=== PATIENT | male | born 1940 | race Caucasian/White ===

== ENCOUNTER 2022-12-07 18:10 | Inpatient (IN) | payer OTHER ==
[~2022-12-07] VITALS: Ht 170.2 cm; Wt 68.0 kg
[2022-12-07 18:20] VITALS: BP 140/51
--- NOTE | 2022-12-07 18:44 | NUR ---
82/M WALKED IN D/T LOW HGB OF 7.5 FROM PCP ROUTINE BLOOD DRAW. DENIES ANY COMPLAINTS AT THIS TIME. DENIES BLOOD IN STOOL. AAO4, AMBULATORY, VITALS STABLE. ON ROOM AIR, NO ACUTE DISTRESS NOTED. ALLERGY: PCN, KEFLEX PMH: CVA, HEART VALVE REPAIR, HTN, HDL
--- NOTE | 2022-12-07 18:45 | NUR ---
BLOOD DRAWN. IV ESTABLISHED TO RIGHT AC WITH 20G.
[2022-12-07 19:04] LABS: BASOPHILS # (AUTO) 0.1 K/uL (0.00-0.22); BASOPHILS % (AUTO) 0.9 % (0.0-2.0); EOSINOPHILS # (AUTO) 0.5 K/uL (0-0.4); EOSINOPHILS % (AUTO) 6.6 % (0.0-4.0); HEMATOCRIT 21.6 % (36-52); HEMOGLOBIN 7.1 g/dL (12.0-18.0); LYMPHOCYTES # (AUTO) 1.8 K/uL (2.0-11.5); LYMPHOCYTES % (AUTO) 22.4 % (20.5-51.1); MEAN CORPUSCULAR HEMOGLOBIN 31 pg (27-31); MEAN CORPUSCULAR HGB CONC 33 g/dL (33-37); MEAN CORPUSCULAR VOLUME 92.3 fL (80-94); MONOCYTES # (AUTO) 0.7 K/uL (0.8-1.0); MONOCYTES % (AUTO) 8.9 % (1.7-9.3); NEUTROPHILS % (AUTO) 61.2 % (42.2-75.2); PLATELET COUNT (AUTO) 249 K/uL (140-450); RED BLOOD CELL COUNT(AUTO) 2.34 MIL/uL (4.20-6.10); RED CELL DISTRIBUTION WIDTH 15.1 % (11.6-13.7); WHITE BLOOD COUNT (AUTO) 8.2 K/uL (4.8-10.8)
[2022-12-07 19:19] LABS: PROTHROMBIN TIME 10.5 secs (10.8-13.4)
[2022-12-07 19:25] LABS: ALBUMIN 3.1 g/dL (3.4-5.0); ANION GAP 10.4 (8-16); ASPARTATE AMINOTRANSFERASE 50 U/L (15-37); CARBON DIOXIDE 27.5 mmol/L (21-32); CHLORIDE 106 mmol/L (98-107); GLUCOSE 115 mg/dL (74-106); POTASSIUM 4.9 mmol/L (3.5-5.1); SODIUM SERUM 139 mmol/L (136-145); TOTAL BILIRUBIN 1.2 mg/dL (0.0-1.0); UREA NITROGEN, BLOOD 43 mg/dL (7-18)
--- NOTE | 2022-12-07 19:33 | NUR ---
PT IS ALERT AND ORIENTED X4. PT IS TALKAATIVE. HE IS ON ROOM AIR, DENIES PAIN. SON AT THE BEDIDE.
[2022-12-07] MEDS ORDERED: VITA1TAB44 PO (20:06)
[2022-12-07] MEDS ORDERED: PANT40EC PO (20:06)
[2022-12-07] MEDS ORDERED: ISOS30TE68 PO (20:06)
[2022-12-07] MEDS ORDERED: FERR325E14 PO (20:06)
[2022-12-07] MEDS ORDERED: METO25TE2 PO (20:06)
[2022-12-07] MEDS ORDERED: ASPI-1822 PO (20:06)
[2022-12-07] MEDS ORDERED: ALPR0.252 PO (20:06)
--- NOTE | 2022-12-07 21:00 | NUR ---
went to get blood from the lab. 1 unit was ordered.
--- NOTE | 2022-12-07 21:33 | NUR ---
blood transfution is initiated. Vital normal is normal limmits. Son at the bedside.
--- NOTE | 2022-12-07 21:40 | NUR ---
BELONGINGS LIST DONE.
[2022-12-07] MEDS ORDERED: LISI30TA6 PO (23:05)
[2022-12-07] MEDS ORDERED: MIRA25TE PO (23:30)
[2022-12-07] MEDS ORDERED: MECO10005 PO (23:30)
[2022-12-07] MEDS ORDERED: POTA10TA70 PO (23:30)
[2022-12-07] MEDS ORDERED: LIP80 PO (23:30)
[2022-12-07] MEDS ORDERED: EZET10TA14 PO (23:30)
[2022-12-07] MEDS ORDERED: OXYC5TAB4 PO (23:30)
[2022-12-07] MEDS ORDERED: ALLO300T28 PO (23:30)
[2022-12-07] MEDS ORDERED: TAMS0.4C96 PO (23:30)
[2022-12-07] MEDS ORDERED: FURO-570 PO (23:30)
[2022-12-07] MEDS ORDERED: FINA5TAB1 PO (23:30)
[2022-12-07] MEDS ORDERED: TRAM50TA3 PO (23:30)
--- NOTE | 2022-12-08 00:50 | NUR ---
Blood transfusion is done. No adverse reaction is noted. pt tolerated well.
[2022-12-08] MEDS: NACL 0.9% 1,000 ML IV SCH ×3 (01:22→09:02)
--- NOTE | 2022-12-08 03:45 | NUR ---
pt called the nurse since he voided and wanted to be changed. crae was provided.
[2022-12-08 07:13] LABS: BASOPHILS # (AUTO) 0.1 K/uL (0.00-0.22); BASOPHILS % (AUTO) 0.9 % (0.0-2.0); EOSINOPHILS # (AUTO) 0.5 K/uL (0-0.4); EOSINOPHILS % (AUTO) 6.5 % (0.0-4.0); HEMATOCRIT 24.5 % (36-52); HEMOGLOBIN 8.2 g/dL (12.0-18.0); LYMPHOCYTES # (AUTO) 1.8 K/uL (2.0-11.5); LYMPHOCYTES % (AUTO) 23.9 % (20.5-51.1); MEAN CORPUSCULAR HEMOGLOBIN 30 pg (27-31); MEAN CORPUSCULAR HGB CONC 33 g/dL (33-37); MONOCYTES # (AUTO) 0.6 K/uL (0.8-1.0); MONOCYTES % (AUTO) 8.1 % (1.7-9.3); NEUTROPHILS # (AUTO) 4.6 K/uL (1.8-7.7); NEUTROPHILS % (AUTO) 60.6 % (42.2-75.2); PLATELET COUNT (AUTO) 210 K/uL (140-450); RED BLOOD CELL COUNT(AUTO) 2.75 MIL/uL (4.20-6.10); RED CELL DISTRIBUTION WIDTH 15.1 % (11.6-13.7); WHITE BLOOD COUNT (AUTO) 7.5 K/uL (4.8-10.8)
[2022-12-08 07:17] LABS: ANION GAP 13.6 (8-16); CARBON DIOXIDE 24.4 mmol/L (21-32); CHLORIDE 109 mmol/L (98-107); CREATININE 1.3 mg/dL (0.6-1.3); GLUCOSE 95 mg/dL (74-106); SODIUM SERUM 142 mmol/L (136-145); UREA NITROGEN, BLOOD 32 mg/dL (7-18)
--- NOTE | 2022-12-08 08:02 | NUR ---
Patient will be admitted to care of KAYE. Admited to TELE. Will go to room 126A. Belongings list completed. Report to ZINA JARAMILLO.
[2022-12-08 08:13] VITALS: BP 159/59
--- NOTE | 2022-12-08 08:13 | NUR ---
RECEIVED PT FROM [employer] SUPERVISOR, BUCK, VIA ISRA, PT IS AWAKE, ALERT AND ORIENTED, ON ROOM AIR, IV LINE NOTED ON THE RIGHT AC G. 20 ON SALINE LOCK, PT HAS HIS OWN WALKER ON BEDSIDE, SKIN IS INTACT, NO OPEN WOUND NOTED, NO SIGN OF DISTRESS NOTED AND WILL CONTINUE TO MONITOR PT.
--- NOTE | 2022-12-08 08:30 | NUR ---
PT'S GOWN AND BEDDINGS WERE CHANGED NOW AND PT WAS MADE COMFORTABLE ON THE BED WITH SON ON THE BEDSIDE.
[2022-12-08] MEDS ORDERED: MAG SULF 2000 MG/WATER PREMIX 50 ML IV PRN (08:55)
[2022-12-08] MEDS ORDERED: POTASSIUM CHLORIDE 10 MEQ TABER PO PRN (08:55)
[2022-12-08] MEDS ORDERED: traMADol 50 MG TAB PO SCH (08:55)
[2022-12-08] MEDS ORDERED: ONDANSETRON 4 MG/2 ML VIAL IVP PRN (09:05)
[2022-12-08] MEDS ORDERED: ACETAMINOPHEN 325 MG TAB PO PRN (09:05)
--- NOTE | 2022-12-08 09:26 | NUR ---
PATIENT HAS BEEN SCREENED AND CATEGORIZED MODERATE NUTRITION RISK. PATIENT WILL BE SEEN WITHIN 3-5 DAYS OF ADMISSION. REVIEWED BY KOLBY GASTON RD
[2022-12-08] MEDS: ASPIRIN 81 MG TAB.CHEW PO SCH (09:28)
[2022-12-08] MEDS: lisinopriL 10 MG TAB PO SCH (09:29)
[2022-12-08] MEDS: allopurinoL 300 MG TAB PO SCH (09:30)
[2022-12-08] MEDS: FERROUS SULFATE 325 MG TABEC PO SCH (09:30)
--- NOTE | 2022-12-08 09:30 | NUR ---
CHEST XR IS BEING DONE TO PT NOW.
[2022-12-08] MEDS: ISOSORBIDE MONONITRATE 30 MG TABER PO SCH (09:31)
[2022-12-08] MEDS: VIT-B COMP/VIT-C/FOLIC ACID 1 TAB PO SCH (09:31)
[2022-12-08] MEDS: FUROSEMIDE 40 MG TAB PO SCH (09:31)
[2022-12-08] MEDS: PANTOPRAZOLE 40 MG TABEC PO SCH (09:32)
[2022-12-08] MEDS: METOPROLOL SUCCINATE 50 MG TABER PO SCH (09:33)
[2022-12-08] MEDS: POTASSIUM CHLORIDE 10 MEQ TABER PO SCH (09:33)
[2022-12-08] MEDS: ALPRAZolam 0.25 MG TAB PO SCH ×3 (09:34→17:36)
--- NOTE | 2022-12-08 09:37 | NUR ---
EKG IS BEING DONE TO PT NOW
[2022-12-08 10:23] LABS: PROTHROMBIN TIME 10.6 secs (10.8-13.4)
[2022-12-08 10:38] LABS: CHOL/HDL RATIO 1.7 (1-4.5); FREE T4 (FREE THYROXINE) 1.35 ng/dL (0.76-1.46); MAGNESIUM 1.9 mg/dL (1.8-2.4); PHOSPHORUS 3.7 mg/dL (2.5-4.9); THYROID STIMULATING HORMONE 0.38 uIU/mL (0.34-3.74)
[2022-12-08] MEDS ORDERED: HEPARIN PER PHARMACY MC PRN (11:45)
[2022-12-08] MEDS ORDERED: hePARIN / DEXT 5% PREMIX 250 ML IV SCH (12:30)
--- NOTE | 2022-12-08 13:40 | NUR ---
SPOKE TO KAYE BROWN ON THE PHONE AND ORDER FOR HEPARIN DRIP WAS VERIFIED WITH MD AND WAS INFORMED THAT THE TROPONIN LEVEL OF PT IS HIGH, PT VERBALIZED THAT HE WAS TAKEN OUT OF THE BLOOD THINNER BY HIS PCP DUE TO THE SUSPICION OF A BLEEDING, DR. RESTREPO SAID THAT SHE WILL GO TO THE PT'S ROOM AND SPEAK WITH PT AND .
--- NOTE | 2022-12-08 14:53 | NUR ---
DR. RESTREPO TALKING TO OF PT NOW.
--- NOTE | 2022-12-08 14:57 | NUR ---
DR. RESTREPO GAVE A TELEPHONE ORDER TO FOLLOW UP ON THE STAT TROPONIN DRAW AND SAID TO HOLD OFF FOR THE HEPARIN DRIP AND WILL WAIT FOR THE REPEAT TROPONIN DRAW. PHARMACIST SAUL WAS INFORMED.
--- NOTE | 2022-12-08 15:45 | NUR ---
DC PLANNING SW MET WITH PT AT BEDSIDE TO COMPLETE ASSESSMENT. PT ALERT AND ORIENTED AND ABLE TO PROVIDE ALL OF HIS OWN INFORMATION. PT REPORTS RESIDING IN A SINGLE-STORY HOME WITH HIS AND GRANDSON, AT THE ADDRESS LISTED ON FILE. PT REPORTS VISITING HIS SON BEFORE BEING ADMITTED TO [facility]. PT IDENTIFIED LOUIE KING, SPOUSE, AND NAKITA VALLADARES, SON [phone] EMERGENCY CONTACT. PT REPORTS AD IN PLACE, NAMING AGENT LOUIE KING. PT REPORTS MEETING WITH PCP DR JEREZ REGULARLY, LAST VISIT, 3 MONTHS AGO. PT REPORTS MEDICATION COMPLIANCE AND REPORTS RECEIVING MEDICATION FROM [facility] IN [facility], WHEN NEEDED. PT REPORTS UTILIZING FWW AND SCOOTER AND REPORTS THAT HE REQUIRES ASSISTANCE WITH ADL'S THAT AIDS WITH. PT REPORTS RECEIVING [facility] 6 MONTHS AGO AFTER HAVING A STROKE, HOWEVER, STRUGGLED TO RECALL NAME OF HH AGENCY. PT DENIES MH, DIALYSIS, DIABETES, AND SNF PLACEMENT. PT REPORTS DC PLAN IS TO RETURN HOME W SON OR PROVIDING TRANSPORTATION WHEN STABLE. PT REPORTS HE WILL BE RETURNING TO [facility] ONCE CLEARED FOR DC. Addendum: 12/08/22 at 1546 by Tory STEVENSON Amended: Links added. Addendum: 12/08/22 at 1547 by Tory STEVENSON Amended: Links added.
[2022-12-08 16:00] VITALS: BP 121/38
[2022-12-08 16:09] LABS: APPEARANCE,URINE CLEAR (CLEAR); COLOR,URINE YELLOW (YELLOW)
[2022-12-08 16:10] LABS: BILIRUBIN,URINE NEGATIVE (NEGATIVE); BLOOD, URINE TRACE (NEGATIVE); NITRITE, URINE NEGATIVE (NEGATIVE); PH,URINE 6.5 (5.0-9.0); UGLUCOSE NEGATIVE (NEGATIVE)
[2022-12-08 16:11] LABS: LEUKOCYTE ESTERASE ,URINE NEGATIVE (NEGATIVE)
[2022-12-08 16:29] LABS: OTHER CASTS, URINE None Seen /LPF (None Seen); RBC,URINE 0-5 /HPF (0-5); WBC,URINE 0-5 /HPF (0-5)
--- NOTE | 2022-12-08 19:35 | NUR ---
RECEIVED REPORT FROM AM SHIFT NURSE ZINA FOR CONTINUITY OF CARE. PATIENT SLEEPING ON ROOM AIR. NO S/S OF RESPIRATORY DISTRESS. BREATHING REGULAR NON LABORED. IVF NS INFUSING 100 ML/HR ON THE RIGHT AC. GALICIA CATHETER DRAINING CLEAR YELLOW URINE. SAFETY MEASURES IN PLACE. CALL LIGHT IN REACH.
[2022-12-08 20:00] VITALS: BP 114/42
--- NOTE | 2022-12-08 20:44 | NUR ---
ADMINISTERED ALL SCHEDULED DUE MEDICATIONS.
[2022-12-08] MEDS: DOCUSATE SODIUM 100 MG GELCAP PO SCH (20:45)
[2022-12-08] MEDS ORDERED: EZETIMIBE 10 MG TAB PO SCH (21:00)
[2022-12-08] MEDS ORDERED: FINASTERIDE 5 MG TAB PO SCH (21:00)
[2022-12-08] MEDS ORDERED: ATORVASTATIN 80 MG TAB PO SCH (21:00)
[2022-12-08] MEDS ORDERED: oxyCODONE 5 MG TAB PO SCH (21:00)
[2022-12-08] MEDS ORDERED: TAMSULOSIN 0.4 MG CAP PO SCH (21:00)
[2022-12-09] VITALS: BP 100/44
--- NOTE | 2022-12-09 00:25 | NUR ---
FIRST UNIT OF BLOOD TRANSFUSED WITH NO ADVERSE REACTION NOTED. V/S MONITORED CLOSELY.
[2022-12-09] MEDS: NACL 0.9% 1,000 ML IV SCH (03:00)
--- NOTE | 2022-12-09 03:07 | NUR ---
PATIENT COMPLAINED OF MILD RIGHT SHOULDER PAIN, MEDICATED.
[2022-12-09 04:00] VITALS: BP 111/46
--- NOTE | 2022-12-09 04:37 | NUR ---
GAVE REPORT TO AURORA ROBERTS FOR CONTINUITY OF CARE.
--- NOTE | 2022-12-09 04:38 | NUR ---
RECEIVED PT SLEEPING, OPEN EYES TO NAME, AAOX4, CURRENTLY GETTING BLOOD TRANSFUSION SECOND UNIT, VITAL SIGNS PER PROTOCOL, DENIES ANY PAIN, NO SOB NOTED, CONTINUE TO MONITOR CLOSELY.
--- NOTE | 2022-12-09 05:30 | NUR ---
2ND UNIT PRBC DONE, VITAL SIGNS TAKEN, BP-111/41, HR-61, RR-18, TEMP-97.7, SAT-94%, DENIES ANY PAIN, RESUMED IVF OF NS AT 100ML/H, CALLED LAB TO DRAWN AM LABS AT 0730, WILL ENDORSE TO AM SHIFT, PT MONITORED CLOSELY.
--- NOTE | 2022-12-09 07:58 | NUR ---
PT AWAKE, NO SIGNS OF DISTRESS, REPORT GIVEN TO RN ADZE FOR CONTINUITY OF CARE.
[2022-12-09] MEDS: METOPROLOL SUCCINATE 50 MG TABER PO SCH (09:00)
[2022-12-09] MEDS: lisinopriL 10 MG TAB PO SCH (09:00)
[2022-12-09] MEDS: FUROSEMIDE 40 MG TAB PO SCH (09:17)
[2022-12-09] MEDS: ALPRAZolam 0.25 MG TAB PO SCH ×2 (09:18→12:07)
[2022-12-09] MEDS: VIT-B COMP/VIT-C/FOLIC ACID 1 TAB PO SCH (09:18)
[2022-12-09] MEDS: allopurinoL 300 MG TAB PO SCH (09:18)
[2022-12-09] MEDS: ASPIRIN 81 MG TAB.CHEW PO SCH (09:18)
[2022-12-09] MEDS: DOCUSATE SODIUM 100 MG GELCAP PO SCH (09:18)
[2022-12-09] MEDS: PANTOPRAZOLE 40 MG TABEC PO SCH (09:19)
[2022-12-09] MEDS: ISOSORBIDE MONONITRATE 30 MG TABER PO SCH (09:19)
[2022-12-09] MEDS: FERROUS SULFATE 325 MG TABEC PO SCH (09:19)
[2022-12-09] MEDS: POTASSIUM CHLORIDE 10 MEQ TABER PO SCH (09:19)
[2022-12-09] MEDS ORDERED: traMADol 50 MG TAB PO PRN (09:35)
[2022-12-09 11:44] LABS: BASOPHILS # (AUTO) 0.1 K/uL (0.00-0.22); EOSINOPHILS # (AUTO) 0.5 K/uL (0-0.4); EOSINOPHILS % (AUTO) 5.9 % (0.0-4.0); HEMATOCRIT 32.9 % (36-52); LYMPHOCYTES # (AUTO) 1.6 K/uL (2.0-11.5); LYMPHOCYTES % (AUTO) 20.5 % (20.5-51.1); MEAN CORPUSCULAR HEMOGLOBIN 29 pg (27-31); MEAN CORPUSCULAR HGB CONC 33 g/dL (33-37); MEAN CORPUSCULAR VOLUME 87.5 fL (80-94); MONOCYTES # (AUTO) 0.7 K/uL (0.8-1.0); MONOCYTES % (AUTO) 9.1 % (1.7-9.3); NEUTROPHILS % (AUTO) 63.5 % (42.2-75.2); PLATELET COUNT (AUTO) 226 K/uL (140-450); RED BLOOD CELL COUNT(AUTO) 3.76 MIL/uL (4.20-6.10); RED CELL DISTRIBUTION WIDTH 15.9 % (11.6-13.7); WHITE BLOOD COUNT (AUTO) 7.9 K/uL (4.8-10.8)
[2022-12-09 12:03] LABS: MAGNESIUM 1.7 mg/dL (1.8-2.4); PHOSPHORUS 3.6 mg/dL (2.5-4.9)
[2022-12-09 12:05] LABS: ANION GAP 8.8 (8-16); CARBON DIOXIDE 27.1 mmol/L (21-32); CHLORIDE 105 mmol/L (98-107); CREATININE 1.2 mg/dL (0.6-1.3); GLUCOSE 119 mg/dL (74-106); POTASSIUM 4.9 mmol/L (3.5-5.1); SODIUM SERUM 136 mmol/L (136-145); UREA NITROGEN, BLOOD 27 mg/dL (7-18)
[2022-12-09 12:47] VITALS: BP 111/46
--- NOTE | 2022-12-09 16:10 | NUR ---
patient discharged home with family. personal belongings was sent home. patient stable upon discharge.
== END 2022-12-09 15:35 | disposition home or self-care (01) | DRG 682 ==
LOC: MED 18:10 → MTU 21:01 → MMU 12-08 05:47
PROC: 30233N1 Transfusion of Nonautologous Red Blood Cells into Peripheral Vein, Percutaneous Approach (ICD-10-PCS; principal; 2022-12-07)
DX: N17.0 Acute kidney failure with tubular necrosis (principal); I21.A1 Myocardial infarction type 2; D63.8 Anemia in other chronic diseases classified elsewhere; R77.8 Other specified abnormalities of plasma proteins; Z20.822 Contact with and (suspected) exposure to COVID-19; E78.5 Hyperlipidemia, unspecified; I11.0 Hypertensive heart disease with heart failure; I50.9 Heart failure, unspecified; K21.9 Gastro-esophageal reflux disease without esophagitis; N40.0 Benign prostatic hyperplasia without lower urinary tract symptoms; I25.10 Atherosclerotic heart disease of native coronary artery without angina pectoris; F41.9 Anxiety disorder, unspecified; M10.9 Gout, unspecified; Z86.73 Personal history of transient ischemic attack (TIA), and cerebral infarction without residual deficits; Z88.0 Allergy status to penicillin; Z79.899 Other long term (current) drug therapy; Z88.8 Allergy status to other drugs, medicaments and biological substances; Z95.5 Presence of coronary angioplasty implant and graft
CPT/HCPCS: 36415; 36430; 71045; 80048; 80053; 81001; 82150; 83036; 83605; 83690; 83735; 83880; 84100; 84439; 84443; 84484; 85025; 85610; 85730; 86886; 86900; 86901; 86920; 87040; 87081; 87086; 93005; 97116; 97163-GP; 99285; P9016; Q0092